=== PATIENT | female | born 1965 | race African-American/Black ===

== ENCOUNTER 2019-03-05 15:21 | Emergency (ER) | payer SELFPAY ==
[~2019-03-05] VITALS: Ht 162.6 cm; Wt 48.0 kg
[2019-03-05 15:30] VITALS: BP 112/68
== END 2019-03-05 15:42 | disposition left against medical advice (07) ==
LOC: ER 15:21
DX: Z53.21 Procedure and treatment not carried out due to patient leaving prior to being seen by health care provider (principal)